=== PATIENT | male | born 1985 | race Asian ===

== ENCOUNTER 2023-12-31 01:46 | Emergency (ER) | payer BC ==
[~2023-12-31] VITALS: Ht 175.3 cm; Wt 83.9 kg
[2023-12-31 02:15] VITALS: BP_SYST 149; PULSE 53; RESP 20; TEMP 98.4; O2SAT 98
[2023-12-31] MEDS: FAMOTIDINE PF 20 MG/2 ML VIAL IVP ONE (02:57)
[2023-12-31] MEDS: NACL 0.9% 1,000 ML IV ONE (02:57)
[2023-12-31] MEDS: ONDANSETRON HCL 4 MG/2 ML VIAL IVP ONE (02:57)
[2023-12-31 03:51] LABS: BASOPHILS % (AUTO) 0.2 % (0.0-2.0); EOSINOPHILS % (AUTO) 0.4 % (0.0-4.0); HEMATOCRIT 41.4 % (36-54); HEMOGLOBIN 13.9 g/dL (14.0-18.0); LYMPHOCYTES # (AUTO) 0.8 K/uL (1.0-5.5); LYMPHOCYTES % (AUTO) 7.5 % (20.5-51.5); MEAN CORPUSCULAR HEMOGLOBIN 30 pg (27-31); MEAN CORPUSCULAR HGB CONC 34 % (32-36); MEAN CORPUSCULAR VOLUME 88 fL (79.0-98.0); MONOCYTES # (AUTO) 0.3 K/uL (0.0-1.0); NEUTROPHILS % (AUTO) 88.9 % (40.0-70.0); PLATELET COUNT (AUTO) 292 K/uL (130-430); RED CELL DISTRIBUTION WIDTH 13.2 % (9.0-15.0); WHITE BLOOD COUNT (AUTO) 11.3 K/uL (4.8-10.8)
[2023-12-31 04:01] LABS: ALBUMIN 3.8 g/dL (3.4-4.8); CREATININE 0.97 mg/dL (0.55-1.30); POTASSIUM 4.1 mmol/L (3.5-5.1); TOTAL BILIRUBIN 0.2 mg/dL (0.0-1.0); TOTAL PROTEIN, SERUM 7.5 g/dL (6.4-8.3)
[2023-12-31] MEDS: METOCLOPRAMIDE HCL 10 MG/2 ML VIAL IVP ONE (04:31)
[2023-12-31 04:36] LABS: BILIRUBIN,URINE NEGATIVE (NEGATIVE); BLOOD, URINE NEGATIVE (NEGATIVE); CLARITY/URINE CLEAR (CLEAR); COLOR,URINE YELLOW (YELLOW); GLUCOSE,URINE NEGATIVE (NEGATIVE); KETONES,URINE TRACE (NEGATIVE); LEUKOCYTE ESTERASE ,URINE NEGATIVE (NEGATIVE); NITRITE, URINE NEGATIVE (NEGATIVE); PROTEIN URINE NEGATIVE (NEGATIVE); UROBILINOGEN,URINE 0.2 (0.2-1.0)
[2023-12-31] MEDS: MAG HYDROX/AL HYDROX/SIMETH 30 ML, DICYCLOMINE HCL 20 MG, LIDOCAINE VISCOUS 2% 15ML (PO... PO ONE (04:39)
[2023-12-31] MEDS: KETOROLAC TROMETHAMINE 30 MG VIAL IVP ONE (04:40)
[2023-12-31 04:57] LABS: BARBITURATE, URINE NEGATIVE (NEG <=200); BENZODIAZEPINE, URINE NEGATIVE (NEG <=150); CANNABINOID, URINE NEGATIVE (NEG <=50); COCAINE, URINE NEGATIVE (NEG <=150); METHAMPHETAMINES SCREEN,URINE POSITIVE (NEG <=500); OPIATE, URINE NEGATIVE (NEG <=100); PHENCYCLIDINE SCREEN,URINE NEGATIVE (NEG <=25); UR TRICYCLIC ANTIDEPRESSANTS NEGATIVE (NEG <=300); URINE AMPHETAMINE NEGATIVE (NEG <=500); URINE METHADONE NEGATIVE (NEG <=200); URINE OXYCODONE SCREEN NEGATIVE (NEG <=100)
[2023-12-31] MEDS ORDERED: ONDA-8 TL (05:34)
[2023-12-31] MEDS ORDERED: ANT30 PO (05:34)
[2023-12-31] MEDS ORDERED: FAMO20TA8 PO (05:34)
[2023-12-31 06:01] VITALS: BP_SYST 149; PULSE 53; RESP 20; TEMP 98.4; O2SAT 98
[2023-12-31] MEDS ORDERED: LISI20TA30 PO (20:26)
== END 2023-12-31 05:45 | disposition home or self-care (01) ==
LOC: SED 01:46
DX: A05.9 Bacterial foodborne intoxication, unspecified (principal); R10.13 Epigastric pain; R11.2 Nausea with vomiting, unspecified; Z79.899 Other long term (current) drug therapy; Z79.2 Long term (current) use of antibiotics
CPT/HCPCS: 99284; 96374; 96375; 96361; 80307; 80053; 81001; 83690; 85025; 36415; 93005; 81003; J3490; J1885; J2765; J2405; J7030; J2001

== ENCOUNTER 2023-12-31 16:33 | Inpatient (IN) | payer BC ==
[~2023-12-31] VITALS: Ht 175.3 cm; Wt 85.7 kg
[~2023-12-31 16:33] MED LIST: ANT30 PO; FAMO20TA8 PO; ONDA-8 TL
[2023-12-31 16:46] VITALS: BP_SYST 106; PULSE 85; RESP 18; TEMP 98.4; O2SAT 98
[2023-12-31 17:59] LABS: BASOPHILS % (AUTO) 0.2 % (0.0-2.0); HEMATOCRIT 42.8 % (36-54); HEMOGLOBIN 14.8 g/dL (14.0-18.0); LYMPHOCYTES # (AUTO) 0.4 K/uL (1.0-5.5); LYMPHOCYTES % (AUTO) 5.4 % (20.5-51.5); MEAN CORPUSCULAR HEMOGLOBIN 30 pg (27-31); MEAN CORPUSCULAR HGB CONC 35 % (32-36); MEAN CORPUSCULAR VOLUME 87 fL (79.0-98.0); MONOCYTES # (AUTO) 0.5 K/uL (0.0-1.0); MONOCYTES % (AUTO) 5.5 % (1.7-9.3); NEUTROPHILS # (AUTO) 7.4 K/uL (1.8-7.7); NEUTROPHILS % (AUTO) 88.9 % (40.0-70.0); PLATELET COUNT (AUTO) 290 K/uL (130-430); RED CELL DISTRIBUTION WIDTH 13.1 % (9.0-15.0); WHITE BLOOD COUNT (AUTO) 8.3 K/uL (4.8-10.8)
[2023-12-31 18:05] LABS: ALBUMIN 3.6 g/dL (3.4-4.8); CALCIUM 8.5 mg/dL (8.4-11.0); CREATININE 1.26 mg/dL (0.55-1.30); TOTAL BILIRUBIN 0.4 mg/dL (0.0-1.0); TOTAL PROTEIN, SERUM 7.4 g/dL (6.4-8.3)
[2023-12-31 18:34] LABS: BILIRUBIN,DIRECT 0.1 mg/dL (0.0-0.3)
[2023-12-31 18:40] LABS: BILIRUBIN,URINE NEGATIVE (NEGATIVE); BLOOD, URINE NEGATIVE (NEGATIVE); CLARITY/URINE CLEAR (CLEAR); COLOR,URINE YELLOW (YELLOW); GLUCOSE,URINE NEGATIVE (NEGATIVE); KETONES,URINE NEGATIVE (NEGATIVE); LEUKOCYTE ESTERASE ,URINE NEGATIVE (NEGATIVE); NITRITE, URINE NEGATIVE (NEGATIVE); PROTEIN URINE TRACE (NEGATIVE); UROBILINOGEN,URINE 0.2 (0.2-1.0)
[2023-12-31 18:54] LABS: BACTERIA,URINE RARE /HPF (None Seen); MUCUS,URINE 1+ /LPF (None Seen); RBC,URINE 0-3 /HPF (0-3); WBC,URINE 0-3 /HPF (0-3)
[2023-12-31 18:55] LABS: BARBITURATE, URINE NEGATIVE (NEG <=200); URINE AMPHETAMINE NEGATIVE (NEG <=500)
[2023-12-31 18:56] LABS: BENZODIAZEPINE, URINE NEGATIVE (NEG <=150); COCAINE, URINE NEGATIVE (NEG <=150); METHAMPHETAMINES SCREEN,URINE POSITIVE (NEG <=500); URINE METHADONE NEGATIVE (NEG <=200)
[2023-12-31 18:57] LABS: CANNABINOID, URINE NEGATIVE (NEG <=50); OPIATE, URINE NEGATIVE (NEG <=100); PHENCYCLIDINE SCREEN,URINE NEGATIVE (NEG <=25); UR TRICYCLIC ANTIDEPRESSANTS NEGATIVE (NEG <=300); URINE OXYCODONE SCREEN NEGATIVE (NEG <=100)
[2023-12-31] MEDS: MORPHINE 4 MG INJ. 4 MG/ML VIAL IVP ONE (19:35)
[2023-12-31] MEDS ORDERED: PIPERACILLIN/TAZOBACTAM 4.5 GM/VIAL (ZOSYN) IV ONE (19:36)
[2023-12-31] MEDS: ONDANSETRON HCL 4 MG/2 ML VIAL IVP ONE (19:37)
[2023-12-31] MEDS: PIPERACILLIN/TAZO 4.5 GM in NS 100 ML IV ONE (19:42)
[2023-12-31] MEDS: NACL 0.9% 1,000 ML IV ONE (20:04)
[2023-12-31] MEDS ORDERED: LISI20TA30 PO (20:26)
[2023-12-31 21:00] VITALS: BP_SYST 108; PULSE 92; RESP 18; TEMP 100.4; O2SAT 97
[2023-12-31 21:23] VITALS: BP_SYST 108; PULSE 92; RESP 18; TEMP 100.4; O2SAT 97
[2023-12-31] MEDS ORDERED: LORazepam 2 MG/ML VIAL IVP PRN (21:30)
[2023-12-31] MEDS ORDERED: ONDANSETRON HCL 4 MG/2 ML VIAL IVP PRN (21:30)
[2023-12-31] MEDS ORDERED: NALOXONE HCL 0.4 MG/ML AMP (NARCAN) IVP PRN (21:30)
[2023-12-31] MEDS ORDERED: MORPHINE 2 MG/ML INJ. SYRINGE IVP PRN (21:30)
[2023-12-31] MEDS: D5/0.45 NS 1,000 ML IV SCH (21:36)
[2023-12-31 23:33] VITALS: BP_SYST 108; PULSE 92; RESP 18; TEMP 100.4; O2SAT 97
[2023-12-31] MEDS: MORPHINE 4 MG INJ. 4 MG/ML VIAL IVP PRN (23:57)
[2024-01-01 00:02] VITALS: BP_SYST 110; PULSE 96; RESP 18; TEMP 99.9; O2SAT 97
[2024-01-01 07:03] LABS: INR 1.4 (0.80-1.20); PROTHROMBIN TIME 14.4 SECS (9.5-12.5)
[2024-01-01 07:11] LABS: BASOPHILS % (AUTO) 0.2 % (0.0-2.0); HEMATOCRIT 39.6 % (36-54); HEMOGLOBIN 13.2 g/dL (14.0-18.0); LYMPHOCYTES # (AUTO) 0.7 K/uL (1.0-5.5); LYMPHOCYTES % (AUTO) 6.9 % (20.5-51.5); MEAN CORPUSCULAR HEMOGLOBIN 30 pg (27-31); MEAN CORPUSCULAR HGB CONC 33 % (32-36); MEAN CORPUSCULAR VOLUME 89 fL (79.0-98.0); MONOCYTES # (AUTO) 0.4 K/uL (0.0-1.0); MONOCYTES % (AUTO) 3.9 % (1.7-9.3); NEUTROPHILS # (AUTO) 9.2 K/uL (1.8-7.7); PLATELET COUNT (AUTO) 246 K/uL (130-430); RED BLOOD CELL COUNT(AUTO) 4.47 MIL/uL (4.2-6.2); RED CELL DISTRIBUTION WIDTH 13.2 % (9.0-15.0); WHITE BLOOD COUNT (AUTO) 10.3 K/uL (4.8-10.8)
[2024-01-01 07:20] LABS: ALBUMIN 2.7 g/dL (3.4-4.8); CALCIUM 7.6 mg/dL (8.4-11.0); CREATININE 1.4 mg/dL (0.55-1.30); TOTAL BILIRUBIN 0.7 mg/dL (0.0-1.0); TOTAL PROTEIN, SERUM 6.2 g/dL (6.4-8.3)
[2024-01-01 08:20] VITALS: BP_SYST 118; PULSE 101; RESP 17; TEMP 100.3; O2SAT 93
[2024-01-01 08:23] VITALS: O2SAT 93
[2024-01-01 12:22] VITALS: BP_SYST 134; PULSE 115; RESP 22; TEMP 99.5; O2SAT 92
[2024-01-01] MEDS ORDERED: ROCURONIUM BROMIDE 10 MG/ML (ZEMURON) ONE (15:21)
[2024-01-01] MEDS ORDERED: ONDANSETRON HCL 4 MG/2 ML VIAL ONE (15:21)
[2024-01-01] MEDS ORDERED: WATER FOR IRRIGATION,STERILE 1,000 ML IRRIG.SOLN IR ONE (15:21)
[2024-01-01] MEDS ORDERED: SEVOFLURANE 15 MIN GAS INH ONE (15:21)
[2024-01-01] MEDS ORDERED: D5W 50 ML IV.SOLN IV ONE (15:21)
[2024-01-01] MEDS ORDERED: BUPIVACAINE /PF 0.25% 30 ML VIAL INJ ONE (15:21)
[2024-01-01] MEDS ORDERED: LR 1,000 ML IV.SOLN IV ONE (15:21)
[2024-01-01] MEDS ORDERED: SUCCINYLCHOLINE CHLORIDE 20 MG/ML(QUELICIN) ONE (15:21)
[2024-01-01] MEDS ORDERED: LIDOCAINE/EPI 1% 1:100000 20 ML VIAL ONE (15:21)
[2024-01-01] MEDS ORDERED: NS 1000 ML IV.SOLN IV ONE (15:21)
[2024-01-01] MEDS ORDERED: NS IRRIG SOLN 1000 ML IR ONE (15:21)
[2024-01-01] MEDS ORDERED: SUGAMMADEX SODIUM 200 MG/2 ML VIAL IV ONE (15:21)
[2024-01-01] MEDS ORDERED: PROPOFOL 200MG/ 20ML VIAL (DIPRIVAN) IV ONE (15:21)
[2024-01-01] MEDS ORDERED: MIDAZOLAM HCL 5 MG/ML VIAL (VERSED) IV ONE (15:21)
[2024-01-01] MEDS ORDERED: fentaNYL CITRATE/PF 100 MCG/2 ML AMP ONE (15:21)
[2024-01-01] MEDS ORDERED: DEXAMETHASONE SOD PHOSPHATE 4 MG/ML VIAL ONE (15:21)
[2024-01-01] MEDS ORDERED: METOCLOPRAMIDE HCL 10 MG/2 ML VIAL ONE (15:21)
[2024-01-01] MEDS ORDERED: ONDANSETRON HCL 4 MG/2 ML VIAL IM PRN (16:00)
[2024-01-01] MEDS ORDERED: NALOXONE HCL 0.4 MG/ML AMP (NARCAN) IVP PRN (16:15)
[2024-01-01] MEDS ORDERED: ONDANSETRON HCL 4 MG/2 ML VIAL IVP PRN (16:15)
[2024-01-01] MEDS ORDERED: HYDROmorphone 1 MG/ML INJ. CARTRIDGE IVP PRN (16:15)
[2024-01-01] MEDS ORDERED: MORPHINE 4 MG INJ. 4 MG/ML VIAL IVP PRN (16:15)
[2024-01-01] MEDS: PIPERACILLIN/TAZO 3.375 GM in D5W 50 ML IV ONE (17:10)
[2024-01-01] MEDS: LR 1,000 ML IV SCH (17:53)
[2024-01-01 20:00] VITALS: BP_SYST 124; PULSE 107; RESP 16; TEMP 98.1; O2SAT 96
[2024-01-01] MEDS: PIPERACILLIN/TAZO 3.375 GM in D5W 50 ML IV SCH (20:44)
[2024-01-01] MEDS: HYDROcodone/ACETAMIN 5-325 MG TAB (NORCO/ VICODIN) PO PRN (20:44)
[2024-01-01] MEDS: HYDROmorphone 1 MG/ML INJ. CARTRIDGE IVP PRN (23:58)
[2024-01-02] VITALS: BP_SYST 118; PULSE 103; RESP 16; TEMP 98.3; O2SAT 95
[2024-01-02 07:42] LABS: BASOPHILS % (AUTO) 0.1 % (0.0-2.0); HEMATOCRIT 39.5 % (36-54); HEMOGLOBIN 13.2 g/dL (14.0-18.0); LYMPHOCYTES # (AUTO) 0.5 K/uL (1.0-5.5); MEAN CORPUSCULAR HEMOGLOBIN 30 pg (27-31); MEAN CORPUSCULAR HGB CONC 34 % (32-36); MEAN CORPUSCULAR VOLUME 88 fL (79.0-98.0); MONOCYTES # (AUTO) 0.4 K/uL (0.0-1.0); MONOCYTES % (AUTO) 2.8 % (1.7-9.3); NEUTROPHILS # (AUTO) 12.7 K/uL (1.8-7.7); NEUTROPHILS % (AUTO) 93.1 % (40.0-70.0); PLATELET COUNT (AUTO) 247 K/uL (130-430); RED BLOOD CELL COUNT(AUTO) 4.46 MIL/uL (4.2-6.2); RED CELL DISTRIBUTION WIDTH 13.2 % (9.0-15.0); WHITE BLOOD COUNT (AUTO) 13.7 K/uL (4.8-10.8)
[2024-01-02 08:00] VITALS: BP_SYST 130; PULSE 106; RESP 17; TEMP 100.4; O2SAT 92
[2024-01-02 08:19] LABS: CALCIUM 8.4 mg/dL (8.4-11.0); CREATININE 1.11 mg/dL (0.55-1.30); POTASSIUM 3.7 mmol/L (3.5-5.1)
[2024-01-02 08:48] VITALS: O2SAT 92
[2024-01-02 11:26] VITALS: BP_SYST 141; PULSE 116; RESP 18; TEMP 97.2; O2SAT 95
[2024-01-02] MEDS ORDERED: NALOXONE HCL 0.4 MG/ML AMP (NARCAN) IVP PRN (11:30)
[2024-01-02] MEDS ORDERED: HYDR-3917 PO (11:37)
[2024-01-02] MEDS: FAMOTIDINE 20 MG TABLET PO ONE (12:09)
[2024-01-02] MEDS: lisinopriL 20 MG TABLET PO ONE (12:11)
[2024-01-02] MEDS: HYDROcodone/ACETAMIN 10-325 MG TAB PO PRN (13:13)
[2024-01-02 15:20] VITALS: BP_SYST 142; PULSE 116; RESP 18; TEMP 100.5; O2SAT 94
[2024-01-02 20:00] VITALS: BP_SYST 142; PULSE 102; RESP 18; TEMP 99.7; O2SAT 95
[2024-01-03] VITALS: BP_SYST 141; PULSE 103; RESP 16; TEMP 99.1; O2SAT 96
[2024-01-03 07:50] VITALS: O2SAT 97
[2024-01-03 08:09] VITALS: BP_SYST 132; PULSE 94; RESP 18; TEMP 98.4; O2SAT 97
[2024-01-03 08:37] LABS: BASOPHILS % (AUTO) 0.2 % (0.0-2.0); EOSINOPHILS % (AUTO) 0.4 % (0.0-4.0); HEMATOCRIT 37.1 % (36-54); HEMOGLOBIN 12.1 g/dL (14.0-18.0); LYMPHOCYTES # (AUTO) 0.7 K/uL (1.0-5.5); LYMPHOCYTES % (AUTO) 5.4 % (20.5-51.5); MEAN CORPUSCULAR HEMOGLOBIN 29 pg (27-31); MEAN CORPUSCULAR HGB CONC 33 % (32-36); MEAN CORPUSCULAR VOLUME 88 fL (79.0-98.0); MONOCYTES # (AUTO) 0.7 K/uL (0.0-1.0); MONOCYTES % (AUTO) 5.9 % (1.7-9.3); NEUTROPHILS # (AUTO) 10.8 K/uL (1.8-7.7); NEUTROPHILS % (AUTO) 88.1 % (40.0-70.0); PLATELET COUNT (AUTO) 244 K/uL (130-430); RED CELL DISTRIBUTION WIDTH 13.4 % (9.0-15.0); WHITE BLOOD COUNT (AUTO) 12.3 K/uL (4.8-10.8)
[2024-01-03 08:58] LABS: CALCIUM 8.5 mg/dL (8.4-11.0); CREATININE 0.98 mg/dL (0.55-1.30); POTASSIUM 3.5 mmol/L (3.5-5.1)
[2024-01-03] MEDS: lisinopriL 20 MG TABLET PO SCH (09:27)
[2024-01-03] MEDS: FAMOTIDINE 20 MG TABLET PO SCH (09:27)
[2024-01-03 12:00] VITALS: BP_SYST 133; RESP 18; TEMP 98.4; O2SAT 95
[2024-01-03] MEDS: MAG-AL HYDROX/SIMETH 30 ML UDC PO PRN (13:35)
[2024-01-03 16:00] VITALS: BP_SYST 130; PULSE 98; RESP 19; TEMP 98.5; O2SAT 98
[2024-01-03] MEDS ORDERED: AUG875 PO (16:52)
[2024-01-03] MEDS ORDERED: TRAM50TA2 PO (16:52)
[2024-01-03 17:41] VITALS: BP_SYST 132; PULSE 94; RESP 18; TEMP 98.4; O2SAT 97
== END 2024-01-03 18:18 | disposition home or self-care (01) | DRG 399 ==
LOC: SED 16:33 → SMU 19:37
PROVIDERS: ADMIT Preventive Medicine Preventive Medicine/Occupational Environmental Medicine; ATTEND Preventive Medicine Preventive Medicine/Occupational Environmental Medicine
PROC: 0DTJ4ZZ Resection of Appendix, Percutaneous Endoscopic Approach (ICD-10-PCS; principal; 2024-01-01 15:24)
DX: K35.33 Acute appendicitis with perforation, localized peritonitis, and gangrene, with abscess (principal); D64.9 Anemia, unspecified; D72.829 Elevated white blood cell count, unspecified; F15.90 Other stimulant use, unspecified, uncomplicated; I10 Essential (primary) hypertension; K59.00 Constipation, unspecified; Z79.899 Other long term (current) drug therapy; Z88.8 Allergy status to other drugs, medicaments and biological substances
CPT/HCPCS: 36415; 71045; 80048; 80053; 80076; 80307; 81000; 81001; 81015; 82150; 83605; 83690; 85025; 85610; 85730; 86886; 86900; 86901; 87081; 88304; 96365; 99285; J0330; J1100; J1170; J2250; J2270; J2405; J2543; J2704; J2765; J3010; J3490; J7030; J7060; J7120